=== PATIENT | male | born 1950 | race Caucasian/White ===

== ENCOUNTER 2024-08-15 11:52 | Emergency (ER) | payer MEDICARE, BC ==
[~2024-08-15] VITALS: Ht 165.1 cm; Wt 78.5 kg
[2024-08-15 12:31] LABS: BASOPHILS % (AUTO) 0.4 % (0.0-2.0); EOSINOPHILS # (AUTO) 0.1 K/uL (0.0-0.7); EOSINOPHILS % (AUTO) 1.1 % (0.0-7.0); HEMATOCRIT 36.6 % (36.7-47.1); HEMOGLOBIN 12.5 g/dL (12.5-16.3); LYMPHOCYTES # (AUTO) 1.6 K/uL (0.8-4.8); LYMPHOCYTES % (AUTO) 27.1 % (20.5-51.5); MEAN CORPUSCULAR HEMOGLOBIN 28.2 uug (23.8-33.4); MEAN CORPUSCULAR HGB CONC 34 g/dL (32.5-36.3); MEAN CORPUSCULAR VOLUME 82.7 fL (73.0-96.2); MONOCYTES # (AUTO) 0.5 K/uL (0.1-1.30); MONOCYTES % (AUTO) 8.9 % (0.0-11.0); NEUTROPHILS # (AUTO) 3.7 K/uL (1.8-8.9); NEUTROPHILS % (AUTO) 62.5 % (38.5-71.5); PLATELET COUNT (AUTO) 177 K/uL (152-348); RED BLOOD CELL COUNT(AUTO) 4.43 MIL/uL (4.06-5.63); RED CELL DISTRIBUTION WIDTH 15.9 % (12.1-16.2); WHITE BLOOD COUNT (AUTO) 5.9 K/uL (3.6-10.2)
[2024-08-15 12:42] LABS: CALCIUM 9.2 mg/dL (8.5-10.1); CARBON DIOXIDE 21 mmol/L (21-32); CHLORIDE 106 mmol/L (98-107); CREATININE 1.2 mg/dL (0.6-1.3); GLUCOSE 121 mg/dL (74-106); POTASSIUM 3.3 mmol/L (3.5-5.1); SODIUM SERUM 142 mmol/L (136-145); UREA NITROGEN, BLOOD 27 mg/dL (7-18)
[2024-08-15 12:46] LABS: AMMONIA 13 umol/L (11-32)
[2024-08-15 12:47] LABS: ETHANOL < 3 MG/DL (0-10)
[2024-08-15 12:54] LABS: THYROID STIMULATING HORMONE 2.763 mIU/mL (0.358-3.740)
[2024-08-15 12:56] LABS: ALANINE AMINOTRANSFERASE 8 U/L (16-63); ALBUMIN 3.4 g/dL (3.4-5.0); ALKALINE PHOSPHATASE 134 U/L (50-136); ASPARTATE AMINOTRANSFERASE 16 U/L (15-37); BILIRUBIN,DIRECT 0.2 mg/dL (0.0-0.2); BILIRUBIN,TOTAL 0.9 mg/dL (0.2-1.0); TOTAL PROTEIN, SERUM 7.9 g/dL (6.4-8.2)
[2024-08-15 12:58] LABS: ACETAMINOPHEN < 2.0 ug/mL (10-30)
[2024-08-15 12:59] LABS: DIFFERENTIAL COMMENT 1
[2024-08-15 15:29] VITALS: BP 161/70; O2SAT 99
== END 2024-08-15 15:30 | disposition home or self-care (01) ==
LOC: ER 11:52
DX: G93.41 Metabolic encephalopathy (principal); E11.649 Type 2 diabetes mellitus with hypoglycemia without coma; Z88.0 Allergy status to penicillin; Z88.5 Allergy status to narcotic agent; Z89.511 Acquired absence of right leg below knee; Z95.0 Presence of cardiac pacemaker; Z20.822 Contact with and (suspected) exposure to COVID-19
CPT/HCPCS: 36415; 70450; 71045; 83605; 84443; 84484; 85025; 85730; 87040; A4606; A4663; G0480